=== PATIENT | female | born 1980 | race Caucasian/White ===

== ENCOUNTER → 2021-04-07 | Outpatient (REF) | payer OTHER ==
[2021-04-07 19:10] LABS: CREATININE, URINE 71.2 MG/DL; MALB URINE SIEMENS 69.3 MG/L; MAU/CREAT RATIO 97.3 MCG/MG (0.0-30.0)
== END ==
LOC: M LAB REF 16:57
PROVIDERS: ATTEND Nurse Practitioner Family
DX: E11.65 Type 2 diabetes mellitus with hyperglycemia (principal)

== ENCOUNTER 2024-09-26 21:16 | Emergency (ER) | payer OTHER ==
[~2024-09-26] VITALS: Ht 160 cm; Wt 50.0 kg
[2024-09-26 22:11] LABS: BASO # 0.1 10^3/uL (0.0-0.2); BASO % 0.4 % (0.0-1.0); EOS # 0.1 10^3/uL (0.0-0.5); EOS % 0.3 % (0.0-3.0); HEMATOCRIT 49.5 % (36.0-47.0); HEMOGLOBIN 17.1 g/dl (12.0-15.5); LYMPH # 2.3 10^3/uL (1.5-5.0); LYMPH % 13.9 % (24.0-44.0); MEAN CORPUSCULAR HEMOGLOBIN 30.5 pg (27.0-33.0); MEAN CORPUSCULAR HGB CONC 34.5 g/dl (32.0-36.5); MEAN CORPUSCULAR VOLUME 88.4 fl (80.0-96.0); MONO # 1.3 10^3/uL (0.0-0.8); MONO % 7.8 % (2.0-8.0); NEUTROPHILS # 12.8 10^3/uL (1.5-8.5); NEUTROPHILS % 77.2 % (36.0-66.0); WHITE BLOOD COUNT 16.6 10^3/uL (4.0-10.0)
[2024-09-26] MEDS ORDERED: POLY510P14 (22:23)
[2024-09-26] MEDS ORDERED: DULO1CAP4 (22:23)
[2024-09-26] MEDS ORDERED: ALBU8.5H (22:23)
[2024-09-26] MEDS ORDERED: GLIM4TAB5 (22:23)
[2024-09-26] MEDS ORDERED: ADME100I2 (22:23)
[2024-09-26] MEDS ORDERED: LORA1TAB23 (22:23)
[2024-09-26] MEDS ORDERED: BLOO-217 (22:23)
[2024-09-26] MEDS ORDERED: FAMO1TAB11 (22:23)
[2024-09-26] MEDS ORDERED: ATOR40TA75 (22:23)
[2024-09-26] MEDS ORDERED: CYCL-707 (22:23)
[2024-09-26 22:27] LABS: CK-MB VALUE MASS < 1.0 NG/ML (<3.6); LIPASE 25 U/L (12-53)
[2024-09-26 22:29] LABS: CPK CREATINE PHOSPHOKINASE 27 U/L (34-145)
[2024-09-26 22:30] LABS: ALBUMIN 3.8 G/DL (3.2-5.2); ALKALINE PHOSPHATASE 110 U/L (35-104); ALT/SGPT 10 U/L (7.0-40); AST/SGOT < 8 U/L (<34); BILIRUBIN,DIRECT 0.2 MG/DL (<0.4); BILIRUBIN,TOTAL 0.6 MG/DL (0.3-1.2); BLOOD UREA NITROGEN 7 MG/DL (9-23); CALCIUM LEVEL 10.1 MG/DL (8.5-10.1); CARBON DIOXIDE LEVEL 27 MMOL/L (20-31); CHLORIDE LEVEL 98 MMOL/L (98-107); CREATININE FOR GFR 0.47 MG/DL (0.55-1.30); GLOMERULAR FILTRATION RATE > 60.0 (>58); GLUCOSE, FASTING 386 MG/DL (60-100); POTASSIUM SERUM 3.4 MMOL/L (3.5-5.1); SODIUM LEVEL 135 MMOL/L (136-145); TOTAL PROTEIN 6.9 G/DL (5.7-8.2)
[2024-09-26] MEDS ORDERED: ISOVUE-370 76% 100ML VIAL As Ordered ONE (22:43)
[2024-09-26 23:04] LABS: HCG, SERUM QUALITATIVE NEGATIVE (NEGATIVE)
[2024-09-27] MEDS ORDERED: cefTRIAXone SOD 1 GM in DEXTROSE 5% (D5W) ADV/MINI-BAG 50 ML IV ONE (00:20)
[2024-09-27] MEDS: CEFTRIAXONE 1 GM IV ONE (01:19)
[2024-09-27] MEDS: SODIUM CHLORIDE 0.9% IV ONE (01:19)
[2024-09-27] MEDS ORDERED: CEFD300C PO (01:25)
[2024-09-27] MEDS ORDERED: DOXY100C82 PO (01:25)
[2024-09-27 02:00] VITALS: BP 107/69
[2024-09-27 02:05] VITALS: TEMP 98.1; O2SAT 96
== END 2024-09-27 02:10 | disposition home or self-care (01) ==
LOC: M ED 21:16
DX: J18.0 Bronchopneumonia, unspecified organism (principal); R00.0 Tachycardia, unspecified; E11.9 Type 2 diabetes mellitus without complications; E78.5 Hyperlipidemia, unspecified; J45.909 Unspecified asthma, uncomplicated; F17.210 Nicotine dependence, cigarettes, uncomplicated; Z91.040 Latex allergy status; Z79.51 Long term (current) use of inhaled steroids; Z79.2 Long term (current) use of antibiotics; Z79.84 Long term (current) use of oral hypoglycemic drugs; Z79.4 Long term (current) use of insulin; Z79.899 Other long term (current) drug therapy
CPT/HCPCS: 71275; 74175; 80048; 80076; 82550; 82553; 83605; 83690; 84484; 84703; 85025; 87040; 87486; 87581; 87633; 87798; 93005; 96365; 99285; J0696; Q9967

== ENCOUNTER → 2024-12-12 | Outpatient (REF) ==
[~2024-12-12] MED LIST: ADME100I2; ALBU8.5H; ATOR40TA75; BLOO-217; CEFD300C PO; CYCL-707; DOXY100C82 PO; DULO1CAP4; FAMO1TAB11; GLIM4TAB5; LORA1TAB23; POLY510P14
== END ==
LOC: M PLAIMG 14:13
PROVIDERS: ATTEND Internal Medicine
DX: R52 Pain, unspecified (principal)

== ENCOUNTER → 2025-06-19 | Outpatient (REF) ==
[~2025-06-19] MED LIST changes: +DOXY-442 PO; -DOXY100C82 PO
[2025-06-19 12:14] LABS: VENOUS BASE EXCESS -28.7 (-2.0-2.0); VENOUS HCO3 4.7 MMOL/L (23.0-27.0); VENOUS O2 SATURATION 92.2 % (60.0-80.0); VENOUS PARTIAL PRESSURE CO2 27.5 mmHg (38.0-50.0); VENOUS PARTIAL PRESSURE O2 98.6 mmHg (30.0-50.0); VENOUS PH 6.850 UNITS (7.330-7.430); VENOUS SITE NOT GIVEN; VENOUS STANDARD HCO3 6.4 MMOL/L; VENOUS TOTAL CO2 5.5 MMOL/L (24.0-28.0)
== END ==
LOC: M LAB REF 12:00
DX: Z13.9 Encounter for screening, unspecified (principal)